=== PATIENT | female | born 1935 | race Caucasian/White ===

== ENCOUNTER 2018-07-16 17:13 | Emergency (ER) | payer MEDICARE, OTHER ==
[~2018-07-16] VITALS: Ht 160 cm; Wt 62.1 kg
--- NOTE | 2018-07-16 17:23 | NUR ---
PT MANJULA FROM [facility] FOR [facility], PT AOX2, PT ON MONITOR, VSS, NAD NOTED, MD AT BEDSIDE FOR EVAL
[2018-07-16] MEDS ORDERED: IV NS 0.9% 1,000 ML BAG IV ONE (17:30)
[2018-07-16] MEDS ORDERED: MAGN400O6 PO (17:36)
[2018-07-16] MEDS ORDERED: CLON0.5T12 PO (17:36)
[2018-07-16] MEDS ORDERED: LOSA100T31 PO (17:36)
[2018-07-16] MEDS ORDERED: ATEN50TA PO (17:36)
[2018-07-16] MEDS ORDERED: CITA20TA16 PO (17:36)
[2018-07-16] MEDS ORDERED: MAG30ORA PO (17:36)
[2018-07-16] MEDS ORDERED: ALEN70TA6 PO (17:36)
[2018-07-16] MEDS ORDERED: AMLO5TAB9 PO (17:36)
[2018-07-16] MEDS ORDERED: DONE5TAB34 PO (17:36)
[2018-07-16] MEDS ORDERED: MEMA10TA PO (17:36)
[2018-07-16 17:37] LABS: BASOPHILS % (AUTO) 0.7 % (0.0-2.0); EOSINOPHILS % (AUTO) 2.5 % (0.0-6.0); HEMATOCRIT 36 % (33-45); HEMOGLOBIN 12.2 g/dL (11.5-14.8); LYMPHOCYTES # (AUTO) 1.2 /CMM (0.8-4.8); LYMPHOCYTES % (AUTO) 23.9 % (20.0-44.0); MEAN CORPUSCULAR HGB CONC 34 g/dl (31.0-36.0); MEAN CORPUSCULAR VOLUME 89 fL (82-100); MONOCYTES # (AUTO) 0.5 /CMM (0.1-1.30); MONOCYTES % (AUTO) 10.1 % (2.0-12.0); NEUTROPHILS # (AUTO) 3.1 /CMM (1.8-8.9); NEUTROPHILS % (AUTO) 62.8 % (43.0-81.0); PLATELET COUNT (AUTO) 232 /CMM (150-450); RED BLOOD CELL COUNT(AUTO) 4.05 MIL/uL (4.0-5.2); WHITE BLOOD COUNT (AUTO) 4.9 K/uL (4.3-11.0)
[2018-07-16 17:49] LABS: CALCIUM, SERUM 9.2 mg/dL (8.5-10.1); CARBON DIOXIDE 34 mmol/L (21-32); CHLORIDE 104 mmol/L (98-107); CREATININE 0.7 mg/dL (0.6-1.3); GLUCOSE 115 mg/dL (74-106); POTASSIUM 3.8 mmol/L (3.5-5.1); SODIUM SERUM 141 mmol/L (136-145); UREA NITROGEN, BLOOD 21 mg/dL (7-18)
--- NOTE | 2018-07-16 17:52 | NUR ---
URINE COLLECTED AND SENT TO LAB
[2018-07-16 17:55] LABS: ALANINE AMINOTRANSFERASE 18 U/L (12-78); ALBUMIN 3.9 g/dL (3.4-5.0); ALKALINE PHOSPHATASE 135 U/L (46-116); ASPARTATE AMINOTRANSFERASE 15 U/L (15-37); BILIRUBIN,DIRECT 0.2 mg/dL (0.0-0.2); BILIRUBIN,TOTAL 0.7 mg/dL (0.2-1.0); TOTAL PROTEIN, SERUM 7.5 g/dL (6.4-8.2)
[2018-07-16 18:04] LABS: APPEARANCE,URINE Clear (CLEAR); BILIRUBIN,URINE Negative (NEGATIVE); BLOOD, URINE Negative Ery/uL (NEGATIVE); COLOR,URINE Yellow (YELLOW); KETONES,URINE Negative (NEGATIVE); LEUKOCYTE ESTERASE ,URINE Negative (NEGATIVE); NITRITE, URINE Negative (NEGATIVE); PH,URINE 5.5 (5.0-8.0); PROTEIN,URINE Negative (NEGATIVE); UGLUCOSE Negative (NEGATIVE); UROBILINOGEN,URINE 0.2 EU/dL (0.2)
[2018-07-16 18:37] LABS: THYROID STIMULATING HORMONE 2.241 uIU/mL (0.358-3.74)
--- NOTE | 2018-07-16 20:31 | NUR ---
PHILIP AT BEDSIDE
--- NOTE | 2018-07-16 21:11 | NUR ---
PHILIP SPEAKING WITH ESTHER BENTON TO TX BACK TO FACILITY. DOES NOT MEET ADMISSION CRITERIA.
--- NOTE | 2018-07-16 21:30 | NUR ---
CALLED [facility] FOR TRANSPORT ETA OF [id number] WAS GIVEN. TRIP#[id number]
--- NOTE | 2018-07-16 22:42 | NUR ---
REPORT GIVEN TO DOMINGO BARNES FOR TRANSFER BACK TO [facility]
[2018-07-16 22:43] VITALS: BP 157/76
== END 2018-07-16 23:03 | disposition home or self-care (01) ==
LOC: EDBD 17:14 → ER 17:14
DX: G93.40 Encephalopathy, unspecified (principal); F03.90 Unspecified dementia, unspecified severity, without behavioral disturbance, psychotic disturbance, mood disturbance, and anxiety; I10 Essential (primary) hypertension; Z79.899 Other long term (current) drug therapy; Z66 Do not resuscitate
CPT/HCPCS: 36415; 70450; 71045; 80048; 80076; 81001; 83605; 84443; 84484; 85025; 85730; 87040 ×2; 93005; 96360; 99284; A4606; J7030; 81000-TC; 87086-TC